=== PATIENT | female | born 1950 | race Caucasian/White ===

== ENCOUNTER 2021-10-11 09:51 | Inpatient (IN) | payer MEDICARE ==
[2021-10-11] VITALS (30 sets, daily range): BP systolic 103–139; BP diastolic 36–96
[~2021-10-11] VITALS: Ht 149.9 cm; Wt 74.0 kg
[~2021-10-11 09:51] MED LIST: AMOXICILLIN500 MG PO; ANTIPYRINE/BENZ1 SOL AU; ASPIRIN LOW DOS81 M1; BENAZEPRIL5 M1 PO; BENAZEPRIL5 MG PO; CIPROFLOXACN500 MG PO; CLOBETASOL PRO0.051 EX; CLOBETASOL0.053 EX; DIFLUCAN150 MG OR; DIPYRIDAMOLE50 MG; DIPYRIDAMOLE50 MG OR; FLONASE NASAL50 MCG; GLYBURIDE2.5 MG PO; GLYBURIDE5 MG PO; LEVOTHYROXIN50 MC1 PO; LEVOTHYROXIN50 MCG PO; LEVOTHYROXIN75 MCG PO; LISINOPRIL2.5 MG PO; LOPRESSOR50 M1 PO; LORTAB 5 PO; LOVASTATIN10 M1 PO; METFORMIN1000 MG PO; METFORMIN500 M1 PO; METFORMIN500 M2 PO; METFORMIN500 MG PO; METOPROL TAR50 MG PO; PLAVIX75 MG PO; PRAVASTATIN10 MG PO; TRIAM/NYSTAT TOP; TRIAMCINOLON0.11 EX
--- NOTE | 2021-10-11 10:01 | NUR ---
PATIENT TO ROOM 14
[2021-10-11 10:37] LABS: HEMATOCRIT 42.5 % (37.0-47.0); HEMOGLOBIN 13.8 g/dl (12.0-16.0); IMMATURE GRANULOCYTES 0.6 % (0.0-5.0); MEAN CELL VOLUME 95.9 fL CALC (80.0-100.0); MEAN CORPUSCULAR HGB 31.2 pG CALC (26.0-32.0); MEAN CORPUSCULAR HGB CONC 32.5 g/dL CAL (32.0-36.0); NEUT# 7.3 thou/uL (2.00-7.15); RED BLOOD COUNT 4.43 mill/uL (4.20-5.60); RED CELL DISTRI WIDTH 12.9 % (11.5-15.5)
[2021-10-11 10:53] LABS: ALBUMIN 4.5 g/dL (3.2-5.0); ALKALINE PHOSPHATASE 96 u/l (38-126); ANION GAP 18 (6-22 (CALC)); BILIRUBIN, TOTAL 0.8 mg/dL (0.0-1.4); BUN 47 mg/dL (8-23); BUN/CREATININE RATIO 13 (12-20 (CALC)); CARBON DIOXIDE 20 mmol/l (22-30); CHLORIDE 103 mmol/l (95-108); CPK 45 u/l (30-165); CREATININE 3.6 mg/dL (0.5-1.0); GFR 12 ML/MIN (>=60 (CALC)); GFR FOR AFR.AMER. 15 ML/MIN (>=60 (CALC)); LIPASE 506 u/l (23-300); MAGNESIUM 1.7 mg/dL (1.6-2.3); POTASSIUM 5.1 mmol/l (3.5-5.1); SGOT/AST 24 u/l (9-36); SODIUM 136 mmol/l (137-146); TOTAL PROTEIN 7.6 g/dL (6.3-8.2)
[2021-10-11 14:53] LABS: URINE BILIRUBIN - DIPSTICK NEGATIVE (NEGATIVE); URINE BLOOD DIPSTICK NEGATIVE (NEGATIVE); URINE COLOR YELLOW; URINE GLUCOSE - DIPSTICK NEGATIVE (NEGATIVE); URINE KETONE 15 mg/dL (NEGATIVE); URINE PROTEIN - DIPSTICK NEGATIVE (NEG-TRACE); URINE SPECIFIC GRAVITY 1.025; URINE UROBILINOGEN - DIPSTICK 0.2 E.U./dL (0.2)
[2021-10-11 14:55] LABS: URINE LEUK ESTERASE SMALL (NEGATIVE); URINE NITRITE - DIPSTICK NEGATIVE (Negative)
[2021-10-11 15:02] LABS: URINE RENAL EPITHELIAL CELLS FEW hpf; URINE SQUAMOUS EPITHELIAL CELL FEW EPI/hpf (0-FEW)
[2021-10-11] MEDS ORDERED: CIPROFLOXACN500 MG PO (16:02)
[2021-10-11] MEDS ORDERED: ZOFRAN4 MG/TAB PO (16:03)
[2021-10-11] MEDS ORDERED: METRONIDAZOLE500 MG PO (16:03)
[2021-10-11] MEDS ORDERED: ATORVASTATIN CA20 MG PO (16:04)
[2021-10-11] MEDS ORDERED: GLIPIZIDE10 M2 PO (16:05)
[2021-10-11] MEDS ORDERED: LOPRESSOR 550 MG/TAB PO (16:06)
[2021-10-11] MEDS ORDERED: TRAZODONE50 MG PO (16:06)
--- NOTE | 2021-10-11 16:07 | NUR ---
Reassessment of patient completed. No distress noted.
--- NOTE | 2021-10-11 16:50 | NUR ---
REPORT CALLED TO MED/SURG NURSE
--- NOTE | 2021-10-11 16:55 | NUR ---
REPORT RECIEVED KIRBY HAWK. PT ARRIVED TO [facility] VIA WHEEL CHAIR PER STAFF. PT CURRENTLY RESTING IN SEMI FOWLERS POSITION. A/OX3 ASSESSMENT AND VITAL SIGNS COMPLETED. HEART RHYTHM NORMAL . RESPIRATIONS EVEN AND UNLABORED. BOWEL SOUNDS ACTIVE. IV SITE 2OGRAC PATENT/FLUSHED. PT EDUCATED ON TV/CALL LIGHT SYSTEM. PT VERBALIZED UNDERSTANDING. PT REQUESTED SNACK . SNACK PROVIDED. PT DENIES ADDITIONAL NEEDS AT THE MOMENT. ALL SAFETY PRECAUTIONS IN PLACE WITH CALL LIGHT IN REACH.
--- NOTE | 2021-10-11 17:00 | NUR ---
PATIENT TO FLOOR.
--- NOTE | 2021-10-11 19:30 | NUR ---
PATIENT RESTING IN BED AT THIS TIME. PATIENT DENEIS ANY NEEDS AND OR PAIN. THERE IS NOTED LOWER LEG EDEMA AT THIS TIME AND IS 1+. PATIENT DENEIS ANY SHORTNESS OF BREATH AND HEART RATE IS REGULAR AT THIS TIME. PATIENT IS ALRER AND ORIENTED X 3. SIDERAILS ARE UP X 2 ROOM ORIENTATION GIVEN. BOWEL SOUNDS PRESENT IN ALL FOUR QUADS AND LUNG HARMAN ARE CLEAR. SIDERAILS ARE UP X 2 CALL LIGHT WIHTIN REACH. WILL CONTINUE TO MONITOR.
--- NOTE | 2021-10-12 00:17 | NUR ---
PATIENT RESTING AT THIS TIME DENIES ANY PAIN AND OR NEEDS WILL CONTINUE TO MONITOR. SIDERAILS ARE UP X 2.
--- NOTE | 2021-10-12 04:02 | NUR ---
PATIENT RESTING IN BED AT THIS TIME WITH EYES CLOSED RESPIRATIONS EASY AND UNLABORED AT THIS TIME. SIDERAILS ARE UP X 2 AND CALL LIGHT WIHTIN REACH. WILL CONTINUE TO MONITOR.
[2021-10-12 04:40] VITALS: BP 135/44
[2021-10-12 05:58] LABS: MEAN CELL VOLUME 97.3 fL CALC (80.0-100.0); MEAN CORPUSCULAR HGB 31.1 pG CALC (26.0-32.0); RED BLOOD COUNT 3.66 mill/uL (4.20-5.60); RED CELL DISTRI WIDTH 13.2 % (11.5-15.5)
[2021-10-12 05:59] LABS: HEMATOCRIT 35.6 % (37.0-47.0); HEMOGLOBIN 11.4 g/dl (12.0-16.0)
[2021-10-12 06:08] LABS: MAGNESIUM 1.9 mg/dL (1.6-2.3)
[2021-10-12 06:09] LABS: CREATININE 1.5 mg/dL (0.5-1.0); POTASSIUM 5.5 mmol/l (3.5-5.1)
[2021-10-12 07:32] VITALS: BP 137/62
--- NOTE | 2021-10-12 08:00 | NUR ---
RECEIVED REPORT FROM NURSING [employer]ISTANTS TEACHER NURSE. PATIENT SITTING IN BED, EATING BREAKFAST. ASSESSMENT COMPLETED. RESPIRATIONS EVEN AND UNLABORED. LS CLEAR. TELE MONITOR IN PLACE. BOWEL SOUNDS ACTIVE. #20G INFUSING NS@ 100ML/HR. SAFETY PRECAUTIONS IN PLACE. CALL LIGHT WITHIN REACH. PATIENT ADVISED TO CALL WITH ANY NEEDS. PATIENT VERBALIZED UNDERSTANDING
[2021-10-12 08:19] VITALS: BP 137/62
--- NOTE | 2021-10-12 11:30 | NUR ---
Discharge instructions given. Patient verbalizes understanding of same. Discharged in stable condition via Wheelchair to Home with spouse. All belongings sent with pt.
== END 2021-10-12 11:30 | disposition home or self-care (01) | DRG 684 ==
LOC: ED 09:51 → MS2 14:22
PROVIDERS: Internal Medicine; ADMIT Internal Medicine; ATTEND Internal Medicine
DX: N17.9 Acute kidney failure, unspecified (principal); K59.00 Constipation, unspecified; E86.0 Dehydration; I10 Essential (primary) hypertension; E11.9 Type 2 diabetes mellitus without complications; Z79.84 Long term (current) use of oral hypoglycemic drugs; Z95.828 Presence of other vascular implants and grafts; Z20.822 Contact with and (suspected) exposure to COVID-19; R10.9 Unspecified abdominal pain